=== PATIENT | male | born 1950 | race African-American/Black ===

== ENCOUNTER 2021-11-29 16:07 | Emergency (ER) | payer MEDICARE, MEDICAID ==
[~2021-11-29] VITALS: Ht 177.8 cm; Wt 73.0 kg
[2021-11-29 16:45] VITALS: BP 144/87
[2021-11-29] MEDS ORDERED: CEFTRIAXONE SODIUM 1 G/VIAL IM ONE (16:45)
[2021-11-29] MEDS ORDERED: SULFAMETHOXAZOLE/TRIMETHOPRIM 400/80MG TAB PO ONE (16:45)
[2021-11-29] MEDS ORDERED: IBUPROFEN 400MG TABLET PO ONE (16:45)
[2021-11-29] MEDS ORDERED: IBUP-2028 MT (17:27)
[2021-11-29] MEDS ORDERED: SULF1TAB48 MT (17:27)
[2021-11-29] MEDS ORDERED: CEPH500C2 MT (17:27)
== END 2021-11-29 18:09 | disposition home or self-care (01) ==
LOC: ER 16:07
DX: L03.031 Cellulitis of right toe (principal); S90.424A Blister (nonthermal), right lesser toe(s), initial encounter; H40.9 Unspecified glaucoma; N40.0 Benign prostatic hyperplasia without lower urinary tract symptoms; X58.XXXA Exposure to other specified factors, initial encounter; Y93.9 Activity, unspecified; Y92.9 Unspecified place or not applicable; Z98.890 Other specified postprocedural states
CPT/HCPCS: 73630; 96372; 99283; J0696

== ENCOUNTER 2022-11-17 15:44 | Inpatient (IN) | payer MEDICARE, MEDICAID ==
[~2022-11-17] VITALS: Ht 177.8 cm; Wt 68.5 kg
[~2022-11-17 15:44] MED LIST: CEPH500C2 MT; IBUP-2028 MT; SULF1TAB48 MT
[2022-11-17] MEDS ORDERED: ONDANSETRON HCL 4MG/2ML INJ IV STA (17:37)
[2022-11-17] MEDS ORDERED: ASPIRIN 81MG TABLET PO ONE (17:45)
[2022-11-17] MEDS ORDERED: SODIUM CHLORIDE 0.9% 1,000 ML IV ONE (17:45)
[2022-11-17] MEDS ORDERED: NITROGLYCERIN OINT 1GM/INCH UDPKT TD ONE (17:45)
[2022-11-17 19:22] LABS: BASOPHILS % 0.1 % (0.0-2.0); HEMATOCRIT. 37.8 % (42.0-52.0); HEMOGLOBIN. 13.1 g/dL (14.0-18.0); MEAN CORPUSCULAR HEMOGLOBIN 28.4 pg (28.0-32.0); MEAN CORPUSCULAR VOLUME 82.3 fL (80.0-94.0); MEAN PLATELET VOLUME 7.6 fl (7.4-10.4); MONOCYTES % 3.6 % (2.0-8.0); NEUTROPHILS % 88.3 % (40.0-76.0); PLATELET 534 x1000/uL (130-400); RED BLOOD CELL COUNT 4.59 mill/uL (4.7-6.1)
[2022-11-17 19:32] LABS: CHLORIDE 86 mEq/L (98-107)
[2022-11-17] MEDS ORDERED: CLONIDINE 0.1MG TABLET PO PRN (22:15)
[2022-11-17] MEDS ORDERED: DOCUSATE SODIUM 100MG CAPSULE PO PRN (22:15)
[2022-11-17] MEDS ORDERED: KETOROLAC 15MG/ML VIAL IV PRN (22:15)
[2022-11-17] MEDS ORDERED: MAGNESIUM/ALUMINUM HYDROXIDE/SIMETHICONE 30ML UDC PO PRN (22:15)
[2022-11-17] MEDS ORDERED: ONDANSETRON HCL 4MG/2ML INJ IV PRN (22:15)
[2022-11-17] MEDS ORDERED: ZOLPIDEM TARTRATE 5MG TABLET PO PRN (22:15)
[2022-11-17] MEDS ORDERED: GUAIFENESIN 200MG/10ML SUGAR FREE UDC PO PRN (22:15)
[2022-11-17] MEDS ORDERED: IPRATROPIUM/ALBUTEROL 0.5-3(2.5)MG/3ML NEB NEB PRN (22:15)
[2022-11-17] MEDS ORDERED: ACETAMINOPHEN 325MG TABLET PO PRN (22:15)
[2022-11-17] MEDS ORDERED: NITROGLYCERIN 0.4MG TABLET SL SL PRN (22:15)
[2022-11-17] MEDS: SODIUM CHLORIDE 0.9% 1,000 ML IV SCH (22:43)
[2022-11-17 23:39] LABS: VITAMIN B12 SERUM 678 pg/mL (211-911)
[2022-11-18 00:21] LABS: CLARITY URINE CLOUDY (CLEAR); COLOR URINE YELLOW (YELLOW); KETONES URINE NEGATIVE (NEGATIVE); LEUKOCYTE ESTERASE URINE 3+ (NEGATIVE); NITRITE URINE NEGATIVE (NEGATIVE); OCCULT BLOOD URINE 2+ (NEGATIVE); PROTEIN URINE NEGATIVE (NEGATIVE); SPECIFIC GRAVITY URINE 1.006 (1.005-1.030)
[2022-11-18 01:17] LABS: ETHANOL BLOOD < 10 mg/dL; HDL CHOLESTEROL 26 mg/dL (40-59); LDL CHOLESTEROL 37 mg/dL (5-100); T4 FREE 0.98 ng/dL (0.76-1.46); TOTAL IRON BINDING CAPACITY 130 ug/dL (250-450)
[2022-11-18 02:25] LABS: SODIUM URINE RANDOM 11 mEq/L
[2022-11-18 02:33] LABS: *AMPHETAMINES SCREEN URINE NEGATIVE (NEGATIVE); *BARBITURATES SCREEN URINE NEGATIVE (NEGATIVE); *BENZODIAZEPINES SCREEN URINE NEGATIVE (NEGATIVE); *COCAINE SCREEN URINE NEGATIVE (NEGATIVE); CANNABINOID URINE SCREEN NEGATIVE (NEGATIVE); METHADONE URINE SCREEN NEGATIVE (NEGATIVE); OPIATES URINE SCREEN NEGATIVE (NEGATIVE); PHENCYCLIDINE URINE SCREEN NEGATIVE (NEGATIVE)
[2022-11-18 03:30] VITALS: BP 116/77
[2022-11-18 04:00] VITALS: BP 116/77
[2022-11-18 08:00] VITALS: BP 109/69
[2022-11-18] MEDS: ENOXAPARIN 40MG/0.4ML SYR SUBCUT SCH (08:48)
[2022-11-18] MEDS: PANTOPRAZOLE SODIUM 40 MG/VIAL IV SCH (08:49)
[2022-11-18] MEDS: ASPIRIN 325MG EC TABLET PO SCH (08:49)
[2022-11-18] MEDS ORDERED: CEFTRIAXONE 1 G PREMIX 50 ML IV SCH (10:15)
[2022-11-18 11:01] LABS: BASOPHILS % 0.3 % (0.0-2.0); EOSINOPHILS % 0.2 % (0.0-5.0); HEMATOCRIT. 37.9 % (42.0-52.0); HEMOGLOBIN. 12.4 g/dL (14.0-18.0); LYMPHOCYTES % 15.4 % (20.0-50.0); MEAN CORPUSCULAR HEMOGLOBIN 27.7 pg (28.0-32.0); MEAN CORPUSCULAR VOLUME 84.7 fL (80.0-94.0); MEAN PLATELET VOLUME 7.8 fl (7.4-10.4); MONOCYTES % 6.7 % (2.0-8.0); NEUTROPHILS % 77.4 % (40.0-76.0); PLATELET 425 x1000/uL (130-400); RED BLOOD CELL COUNT 4.47 mill/uL (4.7-6.1); RED CELL DISTRIBUTION WIDTH 14.3 % (11.6-14.6)
[2022-11-18 11:08] LABS: INR 1.2; PROTHROMBIN TIME 12.4 sec (9.6-11.0)
[2022-11-18] MEDS: SODIUM CHLORIDE 0.9% 1,000 ML IV SCH (11:15)
[2022-11-18 11:22] LABS: CHLORIDE 101 mEq/L (98-107)
[2022-11-18 11:31] LABS: PHOSPHORUS 2.8 mg/dL (2.5-4.9)
[2022-11-18 12:00] VITALS: BP 124/76
[2022-11-18] MEDS: CEFTRIAXONE 1,000 MG in DEXTROSE 5% WATER 50 ML IV SCH (12:54)
[2022-11-18] MEDS: ACETAMINOPHEN 325MG TABLET PO PRN ×2 (15:33→22:25)
[2022-11-18 16:00] VITALS: BP 115/74
[2022-11-18 20:00] VITALS: BP 124/70
[2022-11-19] VITALS: BP 104/71
[2022-11-19] MEDS: SODIUM CHLORIDE 0.9% 1,000 ML IV SCH ×2 (02:10→14:18)
[2022-11-19 04:00] VITALS: BP 121/78
[2022-11-19 08:22] VITALS: BP 121/75
[2022-11-19] MEDS: PANTOPRAZOLE SODIUM 40 MG/VIAL IV SCH (08:39)
[2022-11-19] MEDS: ASPIRIN 325MG EC TABLET PO SCH (08:39)
[2022-11-19] MEDS: ENOXAPARIN 40MG/0.4ML SYR SUBCUT SCH (08:39)
[2022-11-19 12:01] VITALS: BP 115/75
[2022-11-19] MEDS: CEFTRIAXONE 1,000 MG in DEXTROSE 5% WATER 50 ML IV SCH (12:20)
[2022-11-19 15:22] VITALS: BP 128/86
[2022-11-19 20:00] VITALS: BP 107/51
[2022-11-20] VITALS: BP 122/71
[2022-11-20 04:00] VITALS: BP 118/81
[2022-11-20] MEDS: SODIUM CHLORIDE 0.9% 1,000 ML IV SCH (04:58)
[2022-11-20 08:00] VITALS: BP 123/86
[2022-11-20] MEDS ORDERED: FAMOTIDINE 20MG TABLET PO SCH (09:00)
[2022-11-20] MEDS: ENOXAPARIN 40MG/0.4ML SYR SUBCUT SCH (09:29)
[2022-11-20] MEDS: ASPIRIN 325MG EC TABLET PO SCH (09:29)
[2022-11-20] MEDS ORDERED: ASPI-1406 MT (09:50)
[2022-11-20] MEDS ORDERED: NITR-87 MT (09:50)
[2022-11-20 11:18] VITALS: BP 135/85
== END 2022-11-20 16:43 | disposition home or self-care (01) | DRG 872 ==
LOC: ER 15:44 → MICUSO 22:07 → EDBEDREQ 22:15 → EDBEDREQTM 22:15 → 3WST 11-18 03:44
PROVIDERS: ADMIT Internal Medicine; ATTEND Internal Medicine
DX: A41.9 Sepsis, unspecified organism (principal); E44.0 Moderate protein-calorie malnutrition; E87.1 Hypo-osmolality and hyponatremia; N39.0 Urinary tract infection, site not specified; E87.8 Other disorders of electrolyte and fluid balance, not elsewhere classified; M94.0 Chondrocostal junction syndrome [Tietze]; K59.00 Constipation, unspecified; D75.839 Thrombocytosis, unspecified; H40.9 Unspecified glaucoma; N40.0 Benign prostatic hyperplasia without lower urinary tract symptoms; Z79.899 Other long term (current) drug therapy; Z87.891 Personal history of nicotine dependence; Z68.27 Body mass index [BMI] 27.0-27.9, adult; E87.6 Hypokalemia
CPT/HCPCS: 36415; 71045; 74176; 80053; 80061; 80305; 80320; 81003; 82607; 82746; 83036; 83540; 83550; 83605; 83735; 83880; 83930; 83935; 84100; 84145; 84153; 84300; 84439; 84443; 84484; 85025; 87186; 93306; 93970; 99285; C9113; J0696; J1650; J1885; J2405; J7030; J7060; G0103; G0480

== ENCOUNTER 2023-10-16 18:41 | Emergency (ER) | payer MEDICARE, MEDICAID ==
[~2023-10-16] VITALS: Ht 180.3 cm; Wt 66.0 kg
[~2023-10-16 18:41] MED LIST changes: +ASPI-1406 MT; -CEPH500C2 MT; -IBUP-2028 MT; +NITR-87 MT; -SULF1TAB48 MT
[2023-10-16 19:01] VITALS: BP 141/75; PULSE 77; RESP 16; TEMP 98.6; O2SAT 99
[2023-10-16 20:14] LABS: BASOPHILS % 0.8 % (0.0-2.0); EOSINOPHILS % 2.4 % (0.0-5.0); HEMATOCRIT. 43.4 % (42.0-52.0); HEMOGLOBIN. 14.5 g/dL (14.0-18.0); MEAN CORPUSCULAR HEMOGLOBIN 29.9 pg (28.0-32.0); MEAN CORPUSCULAR HGB CONC 33.5 g/dL (31.0-37.0); MEAN CORPUSCULAR VOLUME 89.3 fL (80.0-94.0); MEAN PLATELET VOLUME 7.9 fl (7.4-10.4); MONOCYTES % 8.6 % (2.0-8.0); NEUTROPHILS % 53.2 % (40.0-76.0); PLATELET 319 x1000/uL (130-400); RED BLOOD CELL COUNT 4.86 mill/uL (4.7-6.1); RED CELL DISTRIBUTION WIDTH 14.3 % (11.6-14.6); WHITE BLOOD COUNT 5.9 x1000/uL (4.5-11.0)
[2023-10-16 20:28] LABS: ALANINE AMINOTRANSFERASE 8 IU/L (10-49); ALBUMIN 3.9 g/dL (3.2-4.8); ASPARTATE AMINOTRANSFERASE 17 IU/L (<34); BILIRUBIN TOTAL 0.4 mg/dL (0.1-1.0); CARBON DIOXIDE 26 mEq/L (21-32); CHLORIDE 104 mEq/L (98-107); CREATININE 0.9 mg/dL (0.6-1.3); GLUCOSE 93 mg/dL (70-105); SODIUM 138 mEq/L (136-145); UREA NITROGEN BLOOD 9 mg/dL (9-23)
[2023-10-16] MEDS ORDERED: TERB250T88 MT (20:48)
== END 2023-10-16 21:59 | disposition home or self-care (01) ==
LOC: ER 18:41
DX: B35.1 Tinea unguium (principal); H40.9 Unspecified glaucoma; Z98.890 Other specified postprocedural states
CPT/HCPCS: 36415; 73120; 80053; 85025; 99284

== ENCOUNTER 2024-01-20 14:39 | Emergency (ER) | payer MEDICARE, MEDICAID ==
[~2024-01-20] VITALS: Ht 177.8 cm; Wt 68.0 kg
[~2024-01-20 14:39] MED LIST changes: +TERB250T88 MT
[2024-01-20 15:03] VITALS: TEMP 98.2; O2SAT 100
[2024-01-20 16:15] LABS: BASOPHILS % 1.5 % (0.0-2.0); EOSINOPHILS % 6.3 % (0.0-5.0); HEMATOCRIT. 38.3 % (42.0-52.0); HEMOGLOBIN. 12.2 g/dL (14.0-18.0); LYMPHOCYTES % 36.9 % (20.0-50.0); MEAN CORPUSCULAR HEMOGLOBIN 27.7 pg (28.0-32.0); MEAN CORPUSCULAR HGB CONC 31.9 g/dL (31.0-37.0); MEAN CORPUSCULAR VOLUME 86.8 fL (80.0-94.0); MEAN PLATELET VOLUME 7.8 fl (7.4-10.4); MONOCYTES % 8.3 % (2.0-8.0); PLATELET 330 x1000/uL (130-400); RED BLOOD CELL COUNT 4.41 mill/uL (4.7-6.1); RED CELL DISTRIBUTION WIDTH 15.8 % (11.6-14.6); WHITE BLOOD COUNT 6.1 x1000/uL (4.5-11.0)
[2024-01-20 16:22] LABS: CHLORIDE 104 mEq/L (98-107); POTASSIUM 4.2 mEq/L (3.5-5.1); SODIUM 137 mEq/L (136-145)
[2024-01-20 16:23] LABS: CALCIUM 8.7 mg/dL (8.7-10.4); CARBON DIOXIDE 27 mEq/L (21-32)
[2024-01-20 16:28] LABS: GLUCOSE 82 mg/dL (70-105); UREA NITROGEN BLOOD 10 mg/dL (9-23)
[2024-01-20] MEDS ORDERED: TOPUD MT (18:04)
[2024-01-20 18:30] VITALS: BP 120/70; PULSE 54; RESP 16
== END 2024-01-20 18:32 | disposition home or self-care (01) ==
LOC: ER 14:39
DX: R51.9 Headache, unspecified (principal); H40.9 Unspecified glaucoma; Z98.890 Other specified postprocedural states
CPT/HCPCS: 36415; 80048; 85025; 99284

== ENCOUNTER 2024-04-29 15:18 | Emergency (ER) | payer MEDICARE, BC ==
[~2024-04-29] VITALS: Ht 177.8 cm; Wt 68.0 kg
[~2024-04-29 15:18] MED LIST changes: +TOPUD MT
[2024-04-29 15:43] VITALS: O2SAT 100
[2024-04-29 17:11] LABS: BASOPHILS % 0.5 % (0.0-2.0); EOSINOPHILS % 0.5 % (0.0-5.0); HEMATOCRIT. 39.3 % (42.0-52.0); HEMOGLOBIN. 13.1 g/dL (14.0-18.0); MEAN CORPUSCULAR HEMOGLOBIN 28.8 pg (28.0-32.0); MEAN CORPUSCULAR HGB CONC 33.4 g/dL (31.0-37.0); MEAN CORPUSCULAR VOLUME 86.1 fL (80.0-94.0); MEAN PLATELET VOLUME 8.8 fl (7.4-10.4); MONOCYTES % 13.8 % (2.0-8.0); NEUTROPHILS % 57.2 % (40.0-76.0); PLATELET 298 x1000/uL (130-400); RED BLOOD CELL COUNT 4.57 mill/uL (4.7-6.1); RED CELL DISTRIBUTION WIDTH 15.4 % (11.6-14.6); WHITE BLOOD COUNT 6.4 x1000/uL (4.5-11.0)
[2024-04-29] MEDS: ACETAMINOPHEN 325MG TABLET PO ONE (17:17)
[2024-04-29 17:18] LABS: CHLORIDE 101 mEq/L (98-107); POTASSIUM 4.1 mEq/L (3.5-5.1); SODIUM 133 mEq/L (136-145)
[2024-04-29] MEDS: DEXAMETHASONE 10 MG/ML VIAL IM ONE (17:18)
[2024-04-29] MEDS: METOCLOPRAMIDE HCL 10MG/2ML VIAL IM ONE (17:18)
[2024-04-29 17:19] LABS: CARBON DIOXIDE 28 mEq/L (21-32)
[2024-04-29 17:20] LABS: CALCIUM 8.9 mg/dL (8.7-10.4)
[2024-04-29 17:25] LABS: GLUCOSE 104 mg/dL (70-105); UREA NITROGEN BLOOD 10 mg/dL (9-23)
[2024-04-29] MEDS ORDERED: METOCLOPRAMIDE HCL 10MG/2ML VIAL IM SCH (18:00)
[2024-04-29 18:31] VITALS: BP 114/74; PULSE 70; RESP 18; TEMP 98.7
== END 2024-04-29 18:32 | disposition home or self-care (01) ==
LOC: ER 15:18
DX: E87.1 Hypo-osmolality and hyponatremia (principal); Z98.890 Other specified postprocedural states
CPT/HCPCS: 99285; 70450; 80048; 85025; 36415; 72125; 96372; J1100; J2765

== ENCOUNTER 2024-05-07 12:57 | Emergency (ER) | payer MEDICAID ==
[~2024-05-07] VITALS: Ht 177.8 cm; Wt 68.0 kg
[2024-05-07 13:11] VITALS: BP 147/99; PULSE 71; RESP 16; TEMP 98.3; O2SAT 98
[2024-05-07 14:24] LABS: CHLORIDE 94 mEq/L (98-107); POTASSIUM 3.6 mEq/L (3.5-5.1); SODIUM 126 mEq/L (136-145)
[2024-05-07 14:25] LABS: CALCIUM 8.7 mg/dL (8.7-10.4); CARBON DIOXIDE 29 mEq/L (21-32)
[2024-05-07 14:30] LABS: CREATININE 1.1 mg/dL (0.6-1.3); GLUCOSE 107 mg/dL (70-105); UREA NITROGEN BLOOD 11 mg/dL (9-23)
[2024-05-07 14:32] LABS: ALANINE AMINOTRANSFERASE 10 IU/L (10-49); ASPARTATE AMINOTRANSFERASE 16 IU/L (<34); BILIRUBIN DIRECT 0.1 mg/dL (<=3.0); BILIRUBIN TOTAL 0.5 mg/dL (0.1-1.0); PROTEIN TOTAL 7.3 g/dL (6.0-8.3)
[2024-05-07 14:40] LABS: BASOPHILS % 0.4 % (0.0-2.0); EOSINOPHILS % 0.1 % (0.0-5.0); HEMATOCRIT. 41.9 % (42.0-52.0); HEMOGLOBIN. 14.3 g/dL (14.0-18.0); LYMPHOCYTES % 19.1 % (20.0-50.0); MEAN CORPUSCULAR HEMOGLOBIN 29.3 pg (28.0-32.0); MEAN CORPUSCULAR HGB CONC 34.1 g/dL (31.0-37.0); MEAN PLATELET VOLUME 7.8 fl (7.4-10.4); MONOCYTES % 7.1 % (2.0-8.0); NEUTROPHILS % 73.3 % (40.0-76.0); PLATELET 488 x1000/uL (130-400); RED BLOOD CELL COUNT 4.88 mill/uL (4.7-6.1); RED CELL DISTRIBUTION WIDTH 14.5 % (11.6-14.6); WHITE BLOOD COUNT 9.8 x1000/uL (4.5-11.0)
[2024-05-07] MEDS: ONDANSETRON 4MG ODT PO STA (14:43)
[2024-05-07] MEDS: MAGNESIUM/ALUMINUM HYDROXIDE/SIMETHICONE 30ML UDC PO STA (14:43)
[2024-05-07] MEDS ORDERED: OMEP40CA20 MT (15:53)
[2024-05-07] MEDS ORDERED: ONDA4TAB50 MT (15:53)
[2024-05-07 15:55] LABS: CLARITY URINE TURBID (CLEAR); COLOR URINE YELLOW (YELLOW); GLUCOSE URINE NEGATIVE (NEGATIVE); KETONES URINE NEGATIVE (NEGATIVE); LEUKOCYTE ESTERASE URINE 3+ (NEGATIVE); NITRITE URINE NEGATIVE (NEGATIVE); OCCULT BLOOD URINE 2+ (NEGATIVE); PROTEIN URINE 1+ (NEGATIVE); SPECIFIC GRAVITY URINE 1.012 (1.005-1.030)
[2024-05-07 16:35] LABS: BACTERIA URINE 4+; SQUAMOUS EPITHELIAL CELL URINE FEW /lpf (RARE/1+); WBC URINE TNTC /hpf (0-2)
== END 2024-05-07 16:00 | disposition home or self-care (01) ==
LOC: ER 12:57
DX: R10.13 Epigastric pain (principal); Z98.890 Other specified postprocedural states
CPT/HCPCS: 99284; 74176; 80076; 80048; 81003; 83690; 85025; 87086; 87186; 87077; 36415; 93005; Q0162

== ENCOUNTER 2024-10-30 17:20 | Emergency (ER) | payer MEDICAID ==
[~2024-10-30] VITALS: Ht 177.8 cm; Wt 68.0 kg
[~2024-10-30 17:20] MED LIST changes: +OMEP40CA20 MT; +ONDA4TAB50 MT
[2024-10-30 17:22] VITALS: BP 127/73; RESP 16; TEMP 37.1; O2SAT 100
[2024-10-30 17:24] VITALS: PULSE 88; O2SAT 100
[2024-10-30] MEDS ORDERED: SULF1TAB48 PO (19:54)
[2024-10-30] MEDS ORDERED: TOPUD PO (19:54)
[2024-10-30] MEDS ORDERED: CEPH500C2 PO (19:54)
[2024-10-30] MEDS: LIDOCAINE HCL/PF 1% 10 MG/ML 5ML VIAL INFIL ONE (19:58)
== END 2024-10-30 20:00 | disposition home or self-care (01) ==
LOC: ER 17:37
DX: L02.413 Cutaneous abscess of right upper limb (principal); L03.113 Cellulitis of right upper limb; F10.90 Alcohol use, unspecified, uncomplicated; Z79.82 Long term (current) use of aspirin; Z79.899 Other long term (current) drug therapy; Y90.9 Presence of alcohol in blood, level not specified
CPT/HCPCS: 99284; 10060; 76882; 73070; J2003